=== PATIENT | male | born 1955 | race African-American/Black ===

== ENCOUNTER 2017-02-11 12:56 | Inpatient (IN) | payer MEDICAID ==
[~2017-02-11] VITALS: Ht 180.3 cm; Wt 51.7 kg
[~2017-02-11 12:56] MED LIST: ALPR1TAB7 PO; AMIO100T3 OR; ASPI-231 PO; ATOR40TA52 PO; MET50T PO; [UNRECOGNIZED DRUG - CODE] IV
[2017-02-11] MEDS ORDERED: ALBUTEROL SULF 2.5 MG/0.5ML(0.5%) NEB SOLN HHN STA (13:25)
[2017-02-11] MEDS ORDERED: LEVOFLOXACIN 500MG 100 ML IV ONE (13:30)
[2017-02-11] MEDS ORDERED: IPRATROPIUM BROM 0.5 MG/2.5ML INH SOL NEB ONE (13:30)
[2017-02-11] MEDS ORDERED: methylPREDNISolone SOD SUCC 125 MG/2 ML VL IV ONE (13:30)
[2017-02-11 14:22] LABS: Hematocrit 51.7 % (41.0-53.0); Mean Corpuscular Hemoglobin 32.8 pg (28.0-32.0); Mean Corpuscular Volume 99.5 fL (80.0-100.0); Platelet Count (auto) 318 10^3/uL (140-450); Red Cell Distribution Width 12.8 % (11.6-16.0); SUSPECT VIEW TRANSMISSION; White Blood Cell 10.6 10^3/uL (4.4-10.8)
[2017-02-11 14:32] LABS: Metamyelocytes % 0; Myelocytes % 0; Promyelocytes % 0; Reactive Lymphocytes 0
[2017-02-11 14:41] LABS: Partial Thromboplastin Time 34.7 sec (22.64-33.71)
[2017-02-11 14:43] LABS: INR 1.24 (0.9-1.15); Prothrombin Time 12.8 sec (9.37-12.3)
[2017-02-11 14:56] LABS: Platelet Estimate Adequate
[2017-02-11 14:57] LABS: B-Type Natriuretic Peptide 41.72 pg/mL (0-100); Ovalocytes FEW
[2017-02-11 14:58] LABS: Albumin 3.8 g/dL (3.4-5.0); Alkaline Phosphatase 102 U/L (45-117); Anion Gap 13 (5-15); Aspartate Aminotransferase 28 U/L (15-37); BUN/Creatinine Ratio 14.5; Bilirubin, Total 0.8 mg/dL (0.2-1.0); Blood Urea Nitrogen 16 mg/dL (7-18); Calcium 9.1 mg/dL (8.5-10.1); Carbon Dioxide 26 mmol/L (21-32); Chloride 102 mmol/L (98-107); GFR African American 88 mL/min; GFR Non-African American 72 mL/min; Glucose 92 mg/dL (74-106); Potassium 3.8 mmol/L (3.5-5.1); Sodium 141 mmol/L (136-145); Total Protein 7.3 g/dL (6.4-8.2)
[2017-02-11] MEDS ORDERED: AZITHROMYCIN 500MG/D5W 250ML 250 ML IV ONE (15:00)
[2017-02-11] MEDS ORDERED: NITROGLYCERIN 0.4 MG SL TAB SL PRN (15:00)
[2017-02-11] MEDS ORDERED: MORPHINE SULF INJ 2 MG/ML SYRINGE 1ML IV PRN (15:00)
[2017-02-11 15:04] LABS: Temperature: 23.5 C (20.0-25.0)
[2017-02-11] MEDS ORDERED: AMIODARONE HCL 200 MG TAB PO ONE (15:30)
[2017-02-11] MEDS ORDERED: ASPirin 81 mg TAB PO ONE (15:30)
[2017-02-11 17:00] VITALS: BP 112/90
[2017-02-11 17:16] VITALS: BP 112/90
[2017-02-11 22:01] VITALS: BP 109/79
[2017-02-11] MEDS: methylPREDNISolone SOD SUCC 40 MG/ML VL IV SCH (22:17)
[2017-02-11] MEDS: ATORVASTATIN 20 MG TAB PO SCH (22:18)
[2017-02-11] MEDS: METOPROLOL TARTRATE 25 MG TAB PO SCH (22:20)
[2017-02-12 04:22] LABS: Urine Bilirubin Negative (Negative); Urine Color Yellow (Yellow); Urine Glucose Normal (Normal); Urine Ketone TRACE (Negative); Urine Mucus FEW (None Seen); Urine Nitrite Negative (Negative); Urine RBC 1 /hpf (0 - 3); Urine Squamous Epithelial Cell FEW /hpf (<5); Urine pH 5.5 (5.0-8.0)
[2017-02-12 04:24] LABS: Urine Blood 1+ /uL (Negative)
[2017-02-12 04:47] VITALS: BP 139/85
[2017-02-12 06:27] LABS: Basophils # (auto) 0 uL; Eosinophils # (auto) 0 uL; Hematocrit 50.1 % (41.0-53.0); Hemoglobin 16.6 g/dL (13.5-17.5); Lymphocytes # (auto) 0.5 uL; Lymphocytes % (auto) 5.9 % (10.0-50.0); Mean Corpuscular Hemoglobin 32.8 pg (28.0-32.0); Mean Corpuscular Hgb Conc. 33.2 g/dL (32.0-36.0); Mean Corpuscular Volume 98.9 fL (80.0-100.0); Mean Platelet Volume 8.2 fL (7.4-10.4); Monocytes # (auto) 0.2 uL; Monocytes % (auto) 2.9 % (0.0-12.0); Neutrophils # (auto) 7.4 uL; Neutrophils % (auto) 91.2 % (37.0-80.0); Platelet Count (auto) 312 10^3/uL (140-450); Red Cell Distribution Width 12.9 % (11.6-16.0); White Blood Cell 8.1 10^3/uL (4.4-10.8)
[2017-02-12 06:46] LABS: BUN/Creatinine Ratio 19.4; Calcium 8.9 mg/dL (8.5-10.1); Potassium 3.9 mmol/L (3.5-5.1)
[2017-02-12 08:00] VITALS: BP 131/80
[2017-02-12 09:00] VITALS: BP 131/80
[2017-02-12] MEDS: methylPREDNISolone SOD SUCC 40 MG/ML VL IV SCH (10:00)
[2017-02-12] MEDS: AMIODARONE HCL 200 MG TAB PO SCH (10:00)
[2017-02-12] MEDS: METOPROLOL TARTRATE 25 MG TAB PO SCH ×2 (10:00→22:00)
[2017-02-12] MEDS ORDERED: diphenhdrAMINE HCL 50 MG/1 ML VL ONE (10:11)
[2017-02-12] MEDS: ASPirin 81 mg TAB PO SCH (10:39)
[2017-02-12] MEDS: cefTRIAXone 1GM/50ML D5W 50 ML IV SCH (10:39)
[2017-02-12 13:00] VITALS: BP 128/84
[2017-02-12] MEDS: ALPRAZolam 0.5 MG TAB PO PRN (16:26)
[2017-02-12 17:00] VITALS: BP 144/120
[2017-02-12 22:00] VITALS: BP 140/99
[2017-02-12] MEDS: ATORVASTATIN 20 MG TAB PO SCH (22:12)
[2017-02-13] MEDS: ALPRAZolam 0.5 MG TAB PO PRN ×2 (05:31→14:26)
[2017-02-13 05:45] VITALS: BP 143/95
[2017-02-13 06:21] LABS: Basophils # (auto) 0 uL; Eosinophils # (auto) 0 uL; Eosinophils % (auto) 0.3 % (0.0-7.0); Hemoglobin 17.1 g/dL (13.5-17.5); Lymphocytes # (auto) 1.1 uL; Lymphocytes % (auto) 9.6 % (10.0-50.0); Mean Corpuscular Hemoglobin 32.6 pg (28.0-32.0); Mean Corpuscular Hgb Conc. 32.3 g/dL (32.0-36.0); Mean Corpuscular Volume 100.9 fL (80.0-100.0); Mean Platelet Volume 8.3 fL (7.4-10.4); Monocytes # (auto) 1.1 uL; Monocytes % (auto) 9.7 % (0.0-12.0); Neutrophils % (auto) 80.4 % (37.0-80.0); Platelet Count (auto) 357 10^3/uL (140-450); Red Cell Distribution Width 12.9 % (11.6-16.0); White Blood Cell 11.2 10^3/uL (4.4-10.8)
[2017-02-13 06:51] LABS: Albumin 3.4 g/dL (3.4-5.0); BUN/Creatinine Ratio 29.6
[2017-02-13 07:01] LABS: Bilirubin, Total 0.6 mg/dL (0.2-1.0); Total Protein 6.8 g/dL (6.4-8.2)
[2017-02-13 08:00] VITALS: BP 134/93
[2017-02-13 08:30] VITALS: BP 130/95
[2017-02-13] MEDS: ASPirin 81 mg TAB PO SCH (09:28)
[2017-02-13] MEDS: cefTRIAXone 1GM/50ML D5W 50 ML IV SCH (09:28)
[2017-02-13] MEDS: AMIODARONE HCL 200 MG TAB PO SCH (09:29)
[2017-02-13] MEDS: METOPROLOL TARTRATE 25 MG TAB PO SCH ×2 (09:30→22:29)
[2017-02-13 12:44] VITALS: BP 134/93
[2017-02-13 17:12] VITALS: BP 129/93
[2017-02-13] MEDS ORDERED: ALPRAZolam 0.5 MG TAB PO ONE (20:30)
[2017-02-13] MEDS: ACETAMINOPHEN 325 MG TAB PO PRN (20:50)
[2017-02-13 22:13] VITALS: BP 135/91
[2017-02-13] MEDS: ATORVASTATIN 20 MG TAB PO SCH (22:29)
[2017-02-14 05:12] VITALS: BP 130/85
[2017-02-14] MEDS: ALPRAZolam 0.5 MG TAB PO PRN ×2 (05:27→11:39)
[2017-02-14] MEDS: ACETAMINOPHEN 325 MG TAB PO PRN ×2 (05:27→11:39)
[2017-02-14 06:45] LABS: Basophils # (auto) 0 uL; Basophils % (auto) 0.3 % (0.0-2.0); Eosinophils # (auto) 0 uL; Eosinophils % (auto) 0.4 % (0.0-7.0); Hematocrit 53.7 % (41.0-53.0); Hemoglobin 17.5 g/dL (13.5-17.5); Lymphocytes # (auto) 1.2 uL; Lymphocytes % (auto) 14.9 % (10.0-50.0); Mean Corpuscular Hemoglobin 32.7 pg (28.0-32.0); Mean Corpuscular Hgb Conc. 32.5 g/dL (32.0-36.0); Mean Corpuscular Volume 100.5 fL (80.0-100.0); Mean Platelet Volume 8.4 fL (7.4-10.4); Monocytes # (auto) 0.7 uL; Monocytes % (auto) 8.3 % (0.0-12.0); Neutrophils % (auto) 76.1 % (37.0-80.0); Platelet Count (auto) 338 10^3/uL (140-450); Red Cell Distribution Width 12.6 % (11.6-16.0); White Blood Cell 7.9 10^3/uL (4.4-10.8)
[2017-02-14 07:13] LABS: Albumin 3.4 g/dL (3.4-5.0); Calcium 8.7 mg/dL (8.5-10.1)
[2017-02-14 07:15] LABS: BUN/Creatinine Ratio 27.3
[2017-02-14 07:18] LABS: Bilirubin, Total 0.5 mg/dL (0.2-1.0); Total Protein 6.5 g/dL (6.4-8.2)
[2017-02-14 08:00] VITALS: BP 135/99
[2017-02-14 08:46] VITALS: BP 135/99
[2017-02-14] MEDS: cefTRIAXone 1GM/50ML D5W 50 ML IV SCH (09:03)
[2017-02-14] MEDS: METOPROLOL TARTRATE 25 MG TAB PO SCH (10:21)
[2017-02-14] MEDS: AMIODARONE HCL 200 MG TAB PO SCH (10:21)
[2017-02-14] MEDS: ASPirin 81 mg TAB PO SCH (10:21)
[2017-02-14 11:24] VITALS: BP 132/101
[2017-02-14 12:52] VITALS: BP 132/101
== END 2017-02-14 15:00 | disposition home or self-care (01) | DRG 133 ==
LOC: ER 12:56 → EDBD 12:56 → EDSEX 12:56 → TELE 12:57 → TELE-EAST 17:19 → EAST 19:44 → TELE-EAST 19:57
PROVIDERS: ADMIT Internal Medicine; ATTEND Internal Medicine
DX: J96.00 Acute respiratory failure, unspecified whether with hypoxia or hypercapnia (principal); R64 Cachexia; J18.9 Pneumonia, unspecified organism; J44.0 Chronic obstructive pulmonary disease with (acute) lower respiratory infection; J44.1 Chronic obstructive pulmonary disease with (acute) exacerbation; I10 Essential (primary) hypertension; I25.10 Atherosclerotic heart disease of native coronary artery without angina pectoris; R00.1 Bradycardia, unspecified; E78.5 Hyperlipidemia, unspecified; Z95.1 Presence of aortocoronary bypass graft; Z95.5 Presence of coronary angioplasty implant and graft; F41.9 Anxiety disorder, unspecified; Z86.711 Personal history of pulmonary embolism; I25.2 Old myocardial infarction; Z87.891 Personal history of nicotine dependence; Z86.79 Personal history of other diseases of the circulatory system; Z68.1 Body mass index [BMI] 19.9 or less, adult
CPT/HCPCS: 36415; 70450; 71010; 80048; 80053; 81001; 82962; 83605; 83735; 83880; 84484; 85007; 85025; 85027; 85610; 85730; 87040; 87081; 93005; 93306; 94640; 94761; J0696; J1956